=== PATIENT | female | born 1960 | race Hispanic/Latino ===

== ENCOUNTER 2023-04-30 21:46 | Inpatient (IN) | payer BC, SELFPAY ==
[2023-04-30 22:19] LABS: #Eosinphils 0.3 thou/uL (0.0-0.7); #Monocytes 1.2 thou/uL (0.11-0.59); #Neutrophils 5.3 thou/uL (1.40-6.50); %Basophils 0.2 % (0.0-1.0); %Eosinophils 2.7 % (0.0-10.0); %Lymphocytes 29.3 % (21.0-51.0); %Monocytes 12.2 % (0.0-10.0); %Neutrophils 55.4 % (42.0-75.0); Hemoglobin 15.8 g/dL (12.0-16.0); Mean Corpuscular HGB CONC 34.1 g/dL (32.0-36.0); Mean Corpuscular Hemoglobin 31.7 pg (27.0-31.0); Mean Corpuscular Volume 92.8 fl (78.0-98.0); Platelet Count 305 10x3/uL (130-400); RBC Distribution Width 14.8 % (11.5-14.5); Red Blood Cell (RBC) Count 4.99 mill/uL (4.20-5.40); White Blood Cell (WBC) Count 9.5 10x3/uL (4.8-10.8)
[2023-04-30 22:45] LABS: ALT (SGPT) 41 U/L (8-55); AST (SGOT) 35 U/L (5-34); Albumin 4.6 g/dL (3.4-4.8); Alkaline Phosphatase 138 U/L (40-110); Anion Gap 20 mmol/L (10-20); BUN (Urea Nitrogen) 9 mg/dL (9.8-20.1); Bilirubin, Total 0.3 mg/dL (0.2-1.2); Calc. Creatinine Clearance 0 mL/min (70-130); Calcium 9.9 mg/dL (7.8-10.44); Carbon Dioxide 22 mmol/L (23-31); Chloride 97 mmol/L (98-107); Estimated GFR 99; Globulin 3.9 g/dL (2.4-3.5); Glucose 98 mg/dL (80-115); Potassium 3.8 mmol/L (3.5-5.1); Protein, Total 8.5 g/dL (5.8-8.1); Sodium 135 mmol/L (136-145)
[2023-04-30] MEDS ORDERED: cefTRIAXone (ROCEPHIN) 1 GM VIAL ONE (22:48)
[2023-04-30] MEDS ORDERED: Azithromycin 500 MG VIAL ONE (22:48)
[2023-04-30] MEDS ORDERED: methylPREDNISolone Sod Succ/PF 125 MG/2 ML VIAL ONE (22:48)
[2023-05-01 01:31] LABS: Bilirubin Negative (Negative); Blood, Urine Negative (Negative); CAUTI Indications for Culture Pelvic or flank pain; Clarity Clear (Clear); Glucose, Urine (Dipstick) Normal (Negative); Ketone, Urine Negative (Negative); Leukocyte 25 Leu/uL (Negative); Nitrite Negative (Negative); Protein, Urine (Dipstick) Negative (Neg-Trace); RBC/HPF 0-3 HPF (0-3); Squamous Epithelial 0-3 HPF (0-3); Urobilinogen Normal mg/dL (Less than 2); pH, Urine 6.5 (5.0-9.0)
[2023-05-01 01:36] LABS: Bacteria/HPF 1+ HPF (None Seen)
[2023-05-01 01:37] LABS: Urine Culture Reflex No No
[2023-05-01] MEDS ORDERED: Magnesium 2 GM/50 ML BAG (IN WATER) ONE (01:55)
[2023-05-01] MEDS ORDERED: Albuterol 2.5 MG/0.5 ML NEB ONE (02:05)
[2023-05-01] MEDS ORDERED: Ipratropium/Albuterol 3 ML NEB ONE ×3 (02:06→10:28)
[2023-05-01] MEDS ORDERED: Acetaminophen 325 MG TAB PO PRN (02:16)
[2023-05-01 04:24] LABS: #Monocytes 0.1 thou/uL (0.11-0.59); #Neutrophils 9.1 thou/uL (1.40-6.50); %Basophils 0.1 % (0.0-1.0); %Eosinophils 0.1 % (0.0-10.0); %Lymphocytes 5.5 % (21.0-51.0); %Monocytes 0.9 % (0.0-10.0); %Neutrophils 93.2 % (42.0-75.0); Hemoglobin 13.7 g/dL (12.0-16.0); Mean Corpuscular HGB CONC 34.8 g/dL (32.0-36.0); Mean Corpuscular Hemoglobin 31.8 pg (27.0-31.0); Mean Corpuscular Volume 91.4 fl (78.0-98.0); Mean Platelet Volume 10.4 fL (7.4-10.4); Platelet Count 284 10x3/uL (130-400); RBC Distribution Width 14.6 % (11.5-14.5); Red Blood Cell (RBC) Count 4.31 mill/uL (4.20-5.40); White Blood Cell (WBC) Count 9.7 10x3/uL (4.8-10.8)
[2023-05-01 04:54] LABS: ALT (SGPT) 36 U/L (8-55); AST (SGOT) 27 U/L (5-34); Alkaline Phosphatase 112 U/L (40-110); Anion Gap 17 mmol/L (10-20); BUN (Urea Nitrogen) 9 mg/dL (9.8-20.1); Bilirubin, Total 0.2 mg/dL (0.2-1.2); Calc. Creatinine Clearance 0 mL/min (70-130); Carbon Dioxide 20 mmol/L (23-31); Chloride 99 mmol/L (98-107); Estimated GFR 100; Globulin 3.7 g/dL (2.4-3.5); Glucose 236 mg/dL (80-115); Protein, Total 7.7 g/dL (5.8-8.1); Sodium 133 mmol/L (136-145)
[2023-05-01] MEDS: Azithromycin 500 MG in Sodium Chloride 0.9% 250 ML 250 ML IVPB SCH (07:06)
[2023-05-01 07:08] VITALS: BMI 27.3
[2023-05-01] MEDS ORDERED: Azithromycin 500 MG VIAL ONE ×2 (07:11→07:12)
[2023-05-01] MEDS: Ipratropium/Albuterol 3 ML NEB EZPAP SCH ×6 (07:31→22:57)
[2023-05-01] MEDS ORDERED: Budesonide 0.5 MG/2 ML NEB ONE (07:38)
[2023-05-01] MEDS: Budesonide 0.25 MG/2 ML NEB INH SCH ×2 (07:41→19:01)
[2023-05-01] MEDS ORDERED: Electrolyte Replacement Protocol 1 EACH FS SCH (08:15)
[2023-05-01] MEDS ORDERED: Potassium Chloride 20 MEQ TAB PO SCH (08:30)
[2023-05-01] MEDS ORDERED: Electrolyte Replacement Protocol FS PRN (08:30)
[2023-05-01 09:00] LABS: Phosphorus 3.3 mg/dL (2.3-4.7)
[2023-05-01 09:01] LABS: Magnesium 2.5 mg/dL (1.6-2.6)
[2023-05-01] MEDS ORDERED: Potassium Chloride 20 MEQ TAB ONE (09:15)
[2023-05-01] MEDS ORDERED: methylPREDNISolone Sod Succ 40 MG VIAL ONE (09:15)
[2023-05-01] MEDS ORDERED: Famotidine 20 MG TAB ONE (09:15)
[2023-05-01] MEDS ORDERED: Heparin 10,000 UNITS/ 10 ML VIAL ONE (09:15)
[2023-05-01] MEDS: methylPREDNISolone Sod Succ/PF 125 MG/2 ML VIAL IVP SCH ×2 (09:24→21:35)
[2023-05-01] MEDS: Famotidine 20 MG TAB PO SCH ×2 (09:25→21:34)
[2023-05-01] MEDS: Heparin 5,000 UNITS/ML VIAL SC SCH ×3 (15:11→21:37)
[2023-05-01 20:28] LABS: Potassium 3.5 mmol/L (3.5-5.1)
[2023-05-01] MEDS: cefTRIAXone\\ROCEPHIN 1 GM in Sodium Chloride 0.9% 100 ML IVPB SCH (21:34)
[2023-05-02] MEDS: Ipratropium/Albuterol 3 ML NEB EZPAP SCH ×6 (02:09→22:20)
[2023-05-02] MEDS: Azithromycin 500 MG in Sodium Chloride 0.9% 250 ML 250 ML IVPB SCH (03:17)
[2023-05-02 06:40] LABS: #Monocytes 0.6 thou/uL (0.11-0.59); #Neutrophils 9.7 thou/uL (1.40-6.50); %Basophils 0.1 % (0.0-1.0); %Lymphocytes 10.7 % (21.0-51.0); %Monocytes 4.8 % (0.0-10.0); Hemoglobin 12.5 g/dL (12.0-16.0); Mean Corpuscular Volume 94.1 fl (78.0-98.0); Mean Platelet Volume 10.3 fL (7.4-10.4); Platelet Count 265 10x3/uL (130-400); RBC Distribution Width 15.3 % (11.5-14.5); Red Blood Cell (RBC) Count 3.91 mill/uL (4.20-5.40); White Blood Cell (WBC) Count 11.5 10x3/uL (4.8-10.8)
[2023-05-02 07:15] LABS: Anion Gap 14 mmol/L (10-20); BUN (Urea Nitrogen) 7 mg/dL (9.8-20.1); Calc. Creatinine Clearance 74 mL/min (70-130); Calcium 8.8 mg/dL (7.8-10.44); Carbon Dioxide 23 mmol/L (23-31); Chloride 104 mmol/L (98-107); Estimated GFR 100; Glucose 170 mg/dL (80-115); Potassium 3.9 mmol/L (3.5-5.1); Sodium 137 mmol/L (136-145)
[2023-05-02] MEDS: Budesonide 0.25 MG/2 ML NEB INH SCH ×2 (07:32→18:05)
[2023-05-02] MEDS: Famotidine 20 MG TAB PO SCH ×2 (08:08→21:51)
[2023-05-02] MEDS: Heparin 5,000 UNITS/ML VIAL SC SCH ×3 (08:09→21:52)
[2023-05-02] MEDS: methylPREDNISolone Sod Succ/PF 125 MG/2 ML VIAL IVP SCH ×2 (08:09→21:52)
[2023-05-02] MEDS ORDERED: Non-Formulary Item 1 EACH (Escitalopram Oxalate [Lexapro] 5 MG Tablet) PO SCH (09:00)
[2023-05-02] MEDS ORDERED: Non-Formulary Item 1 EACH (Omeprazole [Omeprazole] 20 MG Tablet.Dr) PO SCH (09:00)
[2023-05-02] MEDS: Atorvastatin Calcium 20 MG TAB PO SCH (09:51)
[2023-05-02] MEDS: Escitalopram Oxalate 10 mg Tablet PO SCH (09:51)
[2023-05-02] MEDS: Hydrochlorothiazide 25 MG TAB PO SCH (09:52)
[2023-05-02] MEDS: Amlodipine 5 MG TAB PO SCH (09:52)
[2023-05-02] MEDS: Gabapentin 100 MG CAP PO SCH (21:51)
[2023-05-02] MEDS: cefTRIAXone\\ROCEPHIN 1 GM in Sodium Chloride 0.9% 100 ML IVPB SCH (21:51)
[2023-05-02] MEDS: Montelukast Sodium 10 mg Tablet PO SCH (21:54)
[2023-05-03] MEDS: Azithromycin 500 MG in Sodium Chloride 0.9% 250 ML 250 ML IVPB SCH (02:34)
[2023-05-03] MEDS: Ipratropium/Albuterol 3 ML NEB EZPAP SCH ×6 (02:46→23:08)
[2023-05-03] MEDS: Budesonide 0.25 MG/2 ML NEB INH SCH ×2 (07:01→18:40)
[2023-05-03 07:11] LABS: #Monocytes 0.6 thou/uL (0.11-0.59); #Neutrophils 8.2 thou/uL (1.40-6.50); %Basophils 0.1 % (0.0-1.0); %Lymphocytes 10.9 % (21.0-51.0); %Monocytes 5.7 % (0.0-10.0); Hemoglobin 12.6 g/dL (12.0-16.0); Mean Corpuscular HGB CONC 33.7 g/dL (32.0-36.0); Mean Corpuscular Hemoglobin 31.5 pg (27.0-31.0); Mean Corpuscular Volume 93.5 fl (78.0-98.0); Mean Platelet Volume 10.9 fL (7.4-10.4); Platelet Count 256 10x3/uL (130-400); RBC Distribution Width 15.5 % (11.5-14.5); White Blood Cell (WBC) Count 9.9 10x3/uL (4.8-10.8)
[2023-05-03 07:46] LABS: Anion Gap 13 mmol/L (10-20); BUN (Urea Nitrogen) 11 mg/dL (9.8-20.1); Calc. Creatinine Clearance 82 mL/min (70-130); Calcium 8.6 mg/dL (7.8-10.44); Carbon Dioxide 24 mmol/L (23-31); Chloride 104 mmol/L (98-107); Estimated GFR 103; Glucose 135 mg/dL (80-115); Potassium 3.7 mmol/L (3.5-5.1); Sodium 137 mmol/L (136-145)
[2023-05-03] MEDS: Hydrochlorothiazide 25 MG TAB PO SCH (08:17)
[2023-05-03] MEDS: Amlodipine 5 MG TAB PO SCH (08:17)
[2023-05-03] MEDS: methylPREDNISolone Sod Succ/PF 125 MG/2 ML VIAL IVP SCH (08:18)
[2023-05-03] MEDS: Atorvastatin Calcium 20 MG TAB PO SCH (08:18)
[2023-05-03] MEDS: Famotidine 20 MG TAB PO SCH ×2 (08:18→21:01)
[2023-05-03] MEDS: Escitalopram Oxalate 10 mg Tablet PO SCH (08:18)
[2023-05-03] MEDS: Heparin 5,000 UNITS/ML VIAL SC SCH ×3 (08:18→21:03)
[2023-05-03] MEDS: Gabapentin 100 MG CAP PO SCH (21:01)
[2023-05-03] MEDS: Montelukast Sodium 10 mg Tablet PO SCH (21:01)
[2023-05-03] MEDS: cefTRIAXone\\ROCEPHIN 1 GM in Sodium Chloride 0.9% 100 ML IVPB SCH (21:02)
[2023-05-04] MEDS: Ipratropium/Albuterol 3 ML NEB EZPAP SCH ×2 (01:51→08:18)
[2023-05-04] MEDS: Azithromycin 500 MG in Sodium Chloride 0.9% 250 ML 250 ML IVPB SCH (02:44)
[2023-05-04] MEDS ORDERED: predniSONE 5 MG TAB PO SCH (08:00)
[2023-05-04] MEDS: Heparin 5,000 UNITS/ML VIAL SC SCH (08:03)
[2023-05-04] MEDS: Famotidine 20 MG TAB PO SCH (08:04)
[2023-05-04] MEDS: Escitalopram Oxalate 10 mg Tablet PO SCH (08:04)
[2023-05-04] MEDS: Amlodipine 5 MG TAB PO SCH (08:04)
[2023-05-04] MEDS: Hydrochlorothiazide 25 MG TAB PO SCH (08:04)
[2023-05-04] MEDS: Atorvastatin Calcium 20 MG TAB PO SCH (08:04)
[2023-05-04 08:08] VITALS: BP 145/83
[2023-05-04] MEDS: Budesonide 0.25 MG/2 ML NEB INH SCH (08:27)
[2023-05-04 08:48] VITALS: TEMP 98
== END 2023-05-04 09:37 | disposition home or self-care (01) | DRG 189 ==
LOC: ERS 21:46 → ERHOLD 05-01 02:12 → T4-B 05-01 13:55 → OBSVTOIN 05-02 13:37
PROVIDERS: ADMIT Internal Medicine Nephrology; ATTEND Internal Medicine
DX: J96.21 Acute and chronic respiratory failure with hypoxia (principal); J44.1 Chronic obstructive pulmonary disease with (acute) exacerbation; I10 Essential (primary) hypertension; E78.5 Hyperlipidemia, unspecified; M81.0 Age-related osteoporosis without current pathological fracture; F41.9 Anxiety disorder, unspecified; E87.6 Hypokalemia; K21.9 Gastro-esophageal reflux disease without esophagitis; Z99.81 Dependence on supplemental oxygen; Z87.891 Personal history of nicotine dependence; Z79.899 Other long term (current) drug therapy
CPT/HCPCS: 36415; 71045; 80048; 80053; 81001; 83605; 83735; 83880; 84100; 84484; 85025; 85379; 87040; 87086; 93005; 94640; 96365; 96366; 96367; 96372; 96375; 96376; G0378; J0456; J0696; J1644; J2920; J2930; J3475; J3490; J7050; J7512; J7611; J7620; J7626

== ENCOUNTER 2024-04-18 23:19 | Inpatient (IN) | payer BC ==
[2024-04-19 01:39] LABS: #Basophils Less than 0.03 10x3/uL (0.0-0.2); #Eosinphils Less than 0.03 10x3/uL (0.0-0.7); %Basophils 0.1 % (0.0-1.0); %Eosinophils 0.1 % (0.0-10.0); %Lymphocytes 11.1 % (21.0-51.0); %Monocytes 6.5 % (0.0-10.0); %Neutrophils 80.9 % (42.0-75.0); Hemoglobin 15.5 g/dL (12.0-16.0); Mean Corpuscular HGB CONC 34.4 g/dL (32.0-36.0); Mean Corpuscular Hemoglobin 31.6 pg (27.0-31.0); Mean Corpuscular Volume 91.8 fL (78.0-98.0); Mean Platelet Volume 9.6 fL (7.4-10.4); Platelet Count 281 10x3/uL (130-400); RBC Distribution Width 14.4 % (11.5-14.5)
[2024-04-19 01:54] LABS: ALT (SGPT) 34 U/L (8-55); AST (SGOT) 21 U/L (5-34); Albumin 3.6 g/dL (3.4-4.8); Alkaline Phosphatase 123 U/L (40-110); Anion Gap 16 mmol/L (10-20); BUN (Urea Nitrogen) 10 mg/dL (9.8-20.1); Bilirubin, Total 0.3 mg/dL (0.2-1.2); Calc. Creatinine Clearance 0 mL/min (70-130); Calcium 9.4 mg/dL (7.8-10.44); Carbon Dioxide 18 mmol/L (23-31); Chloride 93 mmol/L (98-107); Estimated GFR 101; Globulin 3.9 g/dL (2.4-3.5); Glucose 133 mg/dL (80-115); Potassium 3.4 mmol/L (3.5-5.1); Protein, Total 7.5 g/dL (5.8-8.1); Sodium 124 mmol/L (136-145)
[2024-04-19] MEDS ORDERED: HYDROcodone/Acetaminophen 5/325 mg Tablet ONE (02:34)
[2024-04-19 04:45] LABS: Bacteria/HPF None Seen HPF (None Seen); Bilirubin Negative (Negative); Blood, Urine Negative (Negative); CAUTI Indications for Culture < 2yrs of age; Clarity Clear (Clear); Glucose, Urine (Dipstick) Normal (Negative); Ketone, Urine Negative (Negative); Leukocyte Negative Leu/uL (Negative); Nitrite Negative (Negative); Protein, Urine (Dipstick) Negative (Neg-Trace); RBC/HPF 0-3 HPF (0-3); Specific Gravity, Urine 1.007 (1.002-1.036); Squamous Epithelial 0-3 HPF (0-3); Urobilinogen Normal mg/dL (Less than 2); WBC/HPF 0-3 HPF (0-3)
[2024-04-19 04:53] LABS: Urine Culture Reflex Yes Yes
[2024-04-19] MEDS ORDERED: Ondansetron ODT 4 MG TAB SL PRN (05:15)
[2024-04-19] MEDS ORDERED: traMADol HCl 50 MG TAB PO PRN (06:21)
[2024-04-19] MEDS ORDERED: Acetaminophen 325 MG TAB PO PRN (06:21)
[2024-04-19] MEDS ORDERED: Promethazine HCl 25 MG/ML VIAL IM PRN (06:22)
[2024-04-19 07:03] VITALS: BMI 26.2
[2024-04-19] MEDS: Morphine 2 MG/ML VIAL SLOW IVP PRN (07:54)
[2024-04-19] MEDS: Famotidine/PF 20 mg/2ml Vial SLOW IVP SCH (07:54)
[2024-04-19] MEDS: Ondansetron PF 4 MG/2 ML Vial IVP PRN (07:59)
[2024-04-19] MEDS: Acetaminophen 325 MG TAB PO SCH (10:20)
[2024-04-19] MEDS: traMADol HCl 50 MG TAB PO SCH (11:29)
[2024-04-19] MEDS: Ipratropium/Albuterol 3 ML NEB NEB SCH (19:11)
[2024-04-19] MEDS: Senokot S 8.6-50 MG TAB PO SCH (21:07)
[2024-04-20 06:06] LABS: #Basophils 0.03 10x3/uL (0.0-0.2); %Basophils 0.2 % (0.0-1.0); %Lymphocytes 17.9 % (21.0-51.0); %Monocytes 7.9 % (0.0-10.0); %Neutrophils 72.4 % (42.0-75.0); Hemoglobin 13.9 g/dL (12.0-16.0); Mean Corpuscular HGB CONC 34.8 g/dL (32.0-36.0); Mean Corpuscular Hemoglobin 31.8 pg (27.0-31.0); Mean Corpuscular Volume 91.5 fL (78.0-98.0); Mean Platelet Volume 10.1 fL (7.4-10.4); Platelet Count 235 10x3/uL (130-400); RBC Distribution Width 14.4 % (11.5-14.5); Red Blood Cell (RBC) Count 4.37 mill/uL (4.20-5.40)
[2024-04-20 06:27] LABS: Anion Gap 13 mmol/L (10-20); BUN (Urea Nitrogen) 17 mg/dL (9.8-20.1); Calc. Creatinine Clearance 66 mL/min (70-130); Carbon Dioxide 24 mmol/L (23-31); Chloride 93 mmol/L (98-107); Estimated GFR 99; Glucose 118 mg/dL (80-115); Potassium 3.3 mmol/L (3.5-5.1); Sodium 127 mmol/L (136-145)
[2024-04-20] MEDS: Polyethylene Glycol 3350 17 GM Packet PO SCH (08:50)
[2024-04-20 13:06] LABS: Magnesium 1.7 mg/dL (1.6-2.6)
[2024-04-20 13:12] LABS: Troponin I Less than 0.010 ng/mL (< 0.028)
[2024-04-20] MEDS: traMADol HCl 50 MG TAB PO PRN (13:13)
[2024-04-20] MEDS: Sodium Chloride 1 GM TAB PO SCH (15:06)
[2024-04-20] MEDS: Magnesium Sulfate In Water 4 GM in Premix 1 BAG IVPB SCH (20:11)
[2024-04-21 06:50] LABS: #Basophils Less than 0.03 10x3/uL (0.0-0.2); %Basophils 0.2 % (0.0-1.0); %Eosinophils 1.2 % (0.0-10.0); %Lymphocytes 19.2 % (21.0-51.0); %Neutrophils 69.7 % (42.0-75.0); Hematocrit 34.8 % (36.0-47.0); Mean Corpuscular HGB CONC 34.5 g/dL (32.0-36.0); Mean Corpuscular Hemoglobin 32.4 pg (27.0-31.0); Mean Corpuscular Volume 94.1 fL (78.0-98.0); Mean Platelet Volume 11.4 fL (7.4-10.4); Platelet Count 136 10x3/uL (130-400); RBC Distribution Width 14.6 % (11.5-14.5)
[2024-04-21 07:21] LABS: Anion Gap 10 mmol/L (10-20); BUN (Urea Nitrogen) 7 mg/dL (9.8-20.1); Calc. Creatinine Clearance 89 mL/min (70-130); Calcium 8.1 mg/dL (7.8-10.44); Carbon Dioxide 28 mmol/L (23-31); Chloride 97 mmol/L (98-107); Estimated GFR 107; Glucose 81 mg/dL (80-115); Magnesium 2.1 mg/dL (1.6-2.6); Potassium 3.8 mmol/L (3.5-5.1); Sodium 131 mmol/L (136-145)
[2024-04-21] MEDS ORDERED: Ipratropium/Albuterol 3 ML NEB NEB PRN (07:46)
[2024-04-21] MEDS: Enoxaparin 30 MG (0.3 mL) SYRINGE SC SCH (10:02)
[2024-04-21] MEDS: Ipratropium/Albuterol 3 ML NEB NEB SCH (12:18)
[2024-04-21 14:17] VITALS: BMI 26.2
[2024-04-21] MEDS: Ibuprofen 600 MG TAB PO SCH (15:36)
[2024-04-21] MEDS: traMADol HCl 50 MG TAB PO SCH (17:51)
[2024-04-24 15:43] VITALS: BP 117/73; TEMP 98.1
== END 2024-04-24 20:27 | disposition home or self-care (01) | DRG 536 ==
LOC: ERS 23:19 → SURG A 04-19 06:46
PROVIDERS: ADMIT Surgery; ATTEND Surgery
DX: S32.591A Other specified fracture of right pubis, initial encounter for closed fracture (principal); S32.119A Unspecified Zone I fracture of sacrum, initial encounter for closed fracture; W18.30XA Fall on same level, unspecified, initial encounter; J44.9 Chronic obstructive pulmonary disease, unspecified; R00.0 Tachycardia, unspecified; M54.50 Low back pain, unspecified; Z79.899 Other long term (current) drug therapy; Z87.891 Personal history of nicotine dependence; M81.0 Age-related osteoporosis without current pathological fracture; E78.5 Hyperlipidemia, unspecified; I10 Essential (primary) hypertension; K21.9 Gastro-esophageal reflux disease without esophagitis; Z98.890 Other specified postprocedural states
CPT/HCPCS: 36415; 72100; 72170; 72192; 80048; 80053; 81001; 83735; 84100; 84484; 85025; 87086; 93005; 93010; 94640; J1650; J2272; J2405; J3475; J3490; J7620; S0028